=== PATIENT | female | born 1995 | race Caucasian/White ===

== ENCOUNTER 2020-02-16 20:51 | Emergency (ER) | payer SELFPAY ==
[2020-02-16 20:51] VITALS: BP 142/83; PULSE 94; RESP 18; TEMP 36.6; O2SAT 100; BMI 35.3
--- NOTE | 2020-02-16 21:58 | ED.DCSUM_ITS ---
- ER Visit Summary Date of Service: 02/16/20 Chief Complaint: Back pain History of Present Illness: The patient is a 25 F who presents with back pain that has been constant for the past 6 weeks. Patient states the pain is dull and aching. Patient states the pain is over the upper thoracic area and lower c ervical area. Patient states the pain is worse in the mornings. Patient states she does get some numbness and tingling down her right arm. Patient states this comes on when she is driving or holding her arm straight out in front of her. Patient denies any bowel or bladder changes. Patient denies any saddle anesthesia. Patient denies any trauma or injury. Patient is concerned over a pinched nerve. Physical Examination: Vital signs are stable. Patient is afebrile. Patient is in no acute distress. Musculoskeletal exam reveals tenderness over the right upper thoracic and lower cervical paraspinal muscles. There is some mild spasm. There is no bony crepitance or step-off. Range of motion was lightly limited in all motions of the thoracic spine secondary to pain. There is good range of motion of the cervical spine. There is good range of motion of the right shoulder. Radial pulses are equal bilaterally. Sensation was intact light touch in the radial, median, ulnar, and axillary areas bilaterally. Strength is 5/5 bilateral knee upper extremities. Emergency Department Course and Treatment: Patient was instructed to use ice to the area. Patient was given prescriptions for prednisone, Flexeril, and a short course of tramadol. She was advised that we would not be able to diagnose her with a pinched nerve tonight as she may need nerve conduction studies and an EMG for this. Patient was advised that it may be muscle spasms that could be pinching on her nerves. Patient was instructed to follow-up with a primary care physician in 5 to 7 days. Patient understood and was agreeable with the plan. All questions were answered. Disposition: Discharge home Impression: 1. Acute thoracic strain This note was generated with [employer] dictation software. It may contain incorrect words, spelling, and punctuation that were not noted in review of the chart prior to signing ED Disposition - Plan for ED Patient: Disposition: Home or Assisted Living Diagnosis: Acute thoracic myofascial strain Instructions: ED Neck Back Pain General Prescriptions: cycloBENZAPRine HCl [Flexeril] 10 mg PO QHS PRN PRN 10 Days #20 tab PRN Reason: Muscle Spasm Prescription Printed predniSONE tablet 60 mg PO DAILY #15 tab Prescription Printed traMADol [Ultram] 50 mg PO Q6H PRN PRN 3 Days #12 tab PRN Reason: Pain Prescription Printed Referrals: NOT,DEFINED [NON-STAFF] - Emily Pereira MD [STAFF PHYSICIAN] - 5-7 Days
[2020-02-16 22:18] VITALS: RESP 16
== END 2020-02-16 22:21 | disposition home or self-care (01) ==
PROVIDERS: Emergency Provider Emergency Medicine
DX: S29.012A Strain of muscle and tendon of back wall of thorax, initial encounter (principal); Z72.0 Tobacco use; X58.XXXA Exposure to other specified factors, initial encounter; Y93.89 Activity, other specified; Y92.89 Other specified places as the place of occurrence of the external cause; Y99.8 Other external cause status
CPT/HCPCS: 99282